=== PATIENT | male | born 1940 | race Two or more races ===

== ENCOUNTER 2018-06-02 11:25 | Emergency (ER) | payer OTHER ==
[~2018-06-02] VITALS: Ht 190.5 cm; Wt 1134.0 kg
[~2018-06-02 11:25] MED LIST: HYZAAR 100-121 UDTAB PO; NORVASC5 MG PO
[2018-06-02] MEDS ORDERED: ELIQUIS5 MG (12:34)
[2018-06-02] MEDS ORDERED: ZOLOFT25 MG (12:35)
[2018-06-02] MEDS ORDERED: SYNTHROID50 MCG (12:35)
[2018-06-02] MEDS ORDERED: FLECAINIDE ACET50 MG (12:35)
[2018-06-02] MEDS ORDERED: TOPROL XL25 MG (12:35)
== END 2018-06-02 14:24 | disposition home or self-care (01) ==
LOC: ER 11:25
DX: K05.10 Chronic gingivitis, plaque induced (principal); K08.89 Other specified disorders of teeth and supporting structures

== ENCOUNTER → 2018-09-07 | Emergency (ER) | payer OTHER ==
[~2018-09-07] VITALS: Ht 175.3 cm; Wt 102.1 kg
[~2018-09-07] MED LIST changes: +DUI500 PO; +ELIQUIS5 MG; +FLECAINIDE ACET50 MG; +MILLIPRED5 MG; +SYNTHROID50 MCG; +TOPROL XL25 MG; +ZOLOFT25 MG
== END | disposition home or self-care (01) ==
LOC: ER 18:44
DX: L03.113 Cellulitis of right upper limb (principal)

== ENCOUNTER 2018-10-19 11:21 | Emergency (ER) | payer OTHER ==
[~2018-10-19] VITALS: Ht 182.9 cm; Wt 115.2 kg
[2018-10-19] MEDS ORDERED: FLECAINIDE ACET50 MG (12:18)
[2018-10-19] MEDS ORDERED: HYDROCHLOROTH12.5 M1 (12:19)
[2018-10-19] MEDS ORDERED: FUROSEMIDE20 MG (12:19)
[2018-10-19] MEDS ORDERED: ZOFRAN4 MG PO ×2 (12:59→13:02)
[2018-10-19] MEDS ORDERED: ZANTAC150 MG PO ×2 (13:00→13:02)
[2018-10-19] MEDS ORDERED: DUI500 PO (13:02)
== END 2018-10-19 13:26 | disposition home or self-care (01) ==
LOC: ER 11:21
DX: L03.116 Cellulitis of left lower limb (principal)

== ENCOUNTER 2018-12-02 11:17 | Emergency (ER) | payer OTHER ==
[~2018-12-02] VITALS: Ht 180.3 cm; Wt 114.3 kg
[~2018-12-02 11:17] MED LIST changes: +FUROSEMIDE20 MG; +HYDROCHLOROTH12.5 M1; +ZANTAC150 MG PO; +ZOFRAN4 MG PO
== END 2018-12-02 19:20 | disposition home or self-care (01) ==
LOC: ER 11:17
DX: K59.09 Other constipation (principal)

== ENCOUNTER 2023-08-24 15:22 | Inpatient (IN) | payer OTHER ==
[~2023-08-24] VITALS: Ht 182.9 cm; Wt 114.8 kg
[~2023-08-24 15:22] MED LIST changes: +FINASTERIDE5 MG; +TAMS0.4C PO
[2023-08-24] MEDS ORDERED: LOSARTAN POTAS100 MG PO (16:41)
[2023-08-24] MEDS ORDERED: FLECAINIDE ACET50 MG PO (16:41)
[2023-08-24] MEDS ORDERED: ATORVASTATIN CA20 MG PO (16:42)
[2023-08-24] MEDS ORDERED: DOXAZOSIN MESYLA4 MG PO (16:42)
[2023-08-24] MEDS ORDERED: CHILDREN'S ASPI81 MG PO (16:43)
--- NOTE | 2023-08-24 17:22 | NUR ---
SE RECIBE PACIENTE ALERTA Y ORIENTADO X3. EL MISMO REFIERE ESTA MANANA COMENZAR CON PALPITACIONES Y CONTINUAR CON LAS MISMAS. PACIENTE NO PRESENTA DOLOR DE PECHO. SE OBSERVAN RESPIRACIONES ABDOMINALES. SE MIDEN S/V Y SE REALIZA EKG. SE UBICA A PACIENTE Y SE CONECTA A MONITOR CARDIACO.
[2023-08-24] MEDS ORDERED: DILTIAZEM HCL 25 MG/5 ML VIAL IV ONE (18:30)
--- NOTE | 2023-08-24 18:38 | NUR ---
PTE ALERTA Y ORIENTADO X3 SE LE ORIENTA SOBRE TX MEDICO LO CUAL REFIERE ENTENDER Y ACEPTAR. SE LE REALIZAN MUESTRAS DE LAB BAJO MEDIDAS ASEPTICAS. SE LE ADMINISTRA MEDICAMENTO FRANCINE ORDEN MEDICA Y SE NOTIFICA ESTUDIO PENDIENTE.
[2023-08-24 18:39] LABS: HEMATOCRIT 42.7 % (39.0-48.0); HEMOGLOBIN 14.8 g/dL (13-16.00); MEAN CELL VOLUME 90.9 fL (80.0-100.00); MEAN CORPUSCULAR HEMOGLOBIN 31.4 pg (27.00-32.0); MEAN CORPUSCULAR HGB CONC 34.6 g/dl (32.0-36.0); PLATELET COUNT 144 K/uL (150-450); RED BLOOD COUNT 4.69 M/uL (4.00-6.00); RED CELL DISTRIBUTION WIDTH 13.9 % (11.5-14.5)
[2023-08-24 18:41] LABS: ABG PH 7.427 (7.35-7.45); ABG PO2 90.4 mmHg (80-100); ABG pCO2 40.7 mmHg (35-45); BASE EXCESS 1.7 mmol/l; BICARBONATE 26.2 mmol/l (23-25); SaO2 97.2 %; Tco2 27.5 mmol/l; o2 21 %
[2023-08-24 18:42] LABS: allen test SATISFACTORY; puncture site RADIAL RIGHT
[2023-08-24 19:00] LABS: ALBUMIN 3.6 gm/dL (3.4-5.0); BILIRUBIN TOTAL 1.12 mg/dL (0.3-1.2); CALCIUM 8.5 mg/dL (8.5-10.1); CREATININE SERUM 0.86 mg/dL (0.70-1.30); GFR 85.14; GLOBULINA 3.2 G/DL (2.4-3.5); POTASSIUM 3.25 mEq/L (3.5-5.1); TOTAL PROTEIN 6.8 gm/dL (6.4-8.2)
[2023-08-24 19:04] LABS: INR 1.08; PARTIAL THROMBOPLASTIN TIME 31.8 SECONDS (22.0-34.0); PROTHROMBIN TIME 11.3 SECONDS (9.0-11.5)
[2023-08-24 20:18] LABS: PH,URINE 6.5 (5.0-8.0); URINE APPEARANCE Clear; URINE BILIRRUBIN Negative (NEGATIVE); URINE BLOOD Negative; URINE COLOR Yellow; URINE GLUCOSE Negative (NEGATIVE); URINE LEUKOCYTE Negative; URINE NITRATE Negative; URINE PROTEIN Negative (NEGATIVE)
[2023-08-24 20:22] LABS: URINE EPITHELIAL CELLS 3.3 uL (0.0-38.8)
[2023-08-24 20:44] LABS: URINE BACTERIA 2.5 uL (0.0-1933)
[2023-08-24] MEDS ORDERED: APIXABAN 5 MG TABLET PO SCH (21:44)
[2023-08-24] MEDS ORDERED: ACETAMINOPHEN 500 MG GEL..CAP PO PRN (21:45)
[2023-08-24] MEDS ORDERED: DILTIAZEM HCL 125 MG in 0.9 % SODIUM CHLORIDE 100 ML IV SCH (21:45)
[2023-08-25] MEDS ORDERED: ATORVASTATIN CALCIUM 20 MG TABLET PO SCH (09:00)
[2023-08-25] MEDS ORDERED: METOPROLOL SUCCINATE 25 MG TAB.SR.24H PO SCH (09:00)
[2023-08-25] MEDS ORDERED: FAMOTIDINE/PF 20 MG in 0.9 % SODIUM CHLORIDE 8 ML IV PUSH SCH ×2 (09:00→21:00)
[2023-08-25] MEDS ORDERED: FINASTERIDE 5 MG TABLET PO SCH (09:00)
[2023-08-25] MEDS ORDERED: HYDROCHLOROTHIAZIDE 25 MG TABLET PO SCH (11:00)
[2023-08-25] MEDS ORDERED: FF) FLECAINIDE ACETATE 50MG TAB PO SCH (11:01)
[2023-08-25] MEDS ORDERED: DOXAZOSIN MESYLATE 4 MG TABLET PO SCH (12:00)
[2023-08-25] MEDS ORDERED: LOSARTAN POTASSIUM 100 MG TABLET PO SCH (12:00)
[2023-08-25] MEDS ORDERED: POLYETHYLENE GLYCOL 3350 17 GM BLIST.PACK PO SCH (21:00)
[2023-08-25] MEDS ORDERED: FAMOtidine 20 MG TABLET PO SCH (21:00)
[2023-08-26] MEDS ORDERED: LOSARTAN POTAS100 MG PO (14:11)
[2023-08-26] MEDS ORDERED: FINASTERIDE5 MG PO (14:11)
[2023-08-26] MEDS ORDERED: HYDROCHLOROTHIA25 MG PO (14:11)
[2023-08-26] MEDS ORDERED: ATORVASTATIN CA20 MG PO (14:11)
[2023-08-26] MEDS ORDERED: POLY119PG PO (14:11)
[2023-08-26] MEDS ORDERED: FAMOTIDINE20 MG PO (14:11)
[2023-08-26] MEDS ORDERED: ELIQUIS5 MG PO (14:11)
[2023-08-26] MEDS ORDERED: TOPROL XL25 MG PO (14:11)
[2023-08-26] MEDS ORDERED: DOXAZOSIN MESYLA4 MG PO (14:11)
[2023-08-26] MEDS ORDERED: FLECAINIDE ACET50 MG PO (14:11)
== END 2023-08-26 14:58 | disposition home or self-care (01) | DRG 282 ==
LOC: ER 15:22 → ICU 21:46 → ICU-2 21:46 → ICU 08-25 03:39 → SURG 08-25 17:52
PROVIDERS: Nurse Practitioner Family; ADMIT Internal Medicine; ATTEND Internal Medicine
PROC: B246ZZZ Ultrasonography of Right and Left Heart (ICD-10-PCS; principal; 2023-08-24)
PROC: 4A12X4Z Monitoring of Cardiac Electrical Activity, External Approach (ICD-10-PCS; 2023-08-24)
DX: I48.20 Chronic atrial fibrillation, unspecified (principal); I21.4 Non-ST elevation (NSTEMI) myocardial infarction; I11.9 Hypertensive heart disease without heart failure; Z74.01 Bed confinement status; Z79.01 Long term (current) use of anticoagulants

== ENCOUNTER 2023-09-04 10:18 | Emergency (ER) | payer OTHER ==
[~2023-09-04] VITALS: Ht 182.9 cm; Wt 113.4 kg
[~2023-09-04 10:18] MED LIST changes: +ATORVASTATIN CA20 MG PO; +CHILDREN'S ASPI81 MG PO; +DOXAZOSIN MESYLA4 MG PO; +ELIQUIS5 MG PO; +FAMOTIDINE20 MG PO; +FINASTERIDE5 MG PO; +FLECAINIDE ACET50 MG PO; +HYDROCHLOROTHIA25 MG PO; +LOSARTAN POTAS100 MG PO; +POLY119PG PO; +TOPROL XL25 MG PO
[2023-09-04] MEDS ORDERED: ELIQUIS2.5 MG PO (10:31)
[2023-09-04] MEDS ORDERED: FLECAINIDE ACET50 MG PO (10:31)
[2023-09-04] MEDS ORDERED: LIPITOR20 MG PO (10:32)
[2023-09-04] MEDS ORDERED: COZAAR100 MG PO (10:32)
[2023-09-04] MEDS ORDERED: KAPSPARGO SPRIN25 MG PO (10:32)
[2023-09-04] MEDS ORDERED: PROSCAR5 MG PO (10:33)
[2023-09-04] MEDS ORDERED: HYDROCHLOROTHIA25 MG PO (10:33)
[2023-09-04] MEDS ORDERED: CARDURA XL4 MG PO (10:33)
[2023-09-04] MEDS ORDERED: FUROsemide 40 MG/4 ML VIAL IV ONE (11:00)
[2023-09-04] MEDS ORDERED: FUROsemide 40 MG/4 ML VIAL ONE (11:34)
[2023-09-04 11:57] LABS: ABG PH 7.417 (7.35-7.45); ABG PO2 80.2 mmHg (80-100); ABG pCO2 44.7 mmHg (35-45)
[2023-09-04 11:58] LABS: BICARBONATE 28.2 mmol/l (23-25); Tco2 29.5 mmol/l; allen test SATISFACTORY; o2 21 %; puncture site RADIAL RIGHT
[2023-09-04 12:20] LABS: HEMATOCRIT 36.7 % (39.0-48.0); HEMOGLOBIN 12.7 g/dL (13-16.00); MEAN CELL VOLUME 90.2 fL (80.0-100.00); MEAN CORPUSCULAR HEMOGLOBIN 31.2 pg (27.00-32.0); MEAN CORPUSCULAR HGB CONC 34.6 g/dl (32.0-36.0); RED BLOOD COUNT 4.07 M/uL (4.00-6.00); RED CELL DISTRIBUTION WIDTH 13.7 % (11.5-14.5)
[2023-09-04 12:22] LABS: PLATELET COUNT 117 K/uL (150-450)
[2023-09-04 12:36] LABS: PH,URINE 6.5 (5.0-8.0); URINE APPEARANCE Clear; URINE BILIRRUBIN Negative (NEGATIVE); URINE BLOOD Negative; URINE COLOR Yellow; URINE GLUCOSE Negative (NEGATIVE); URINE LEUKOCYTE Negative; URINE NITRATE Negative; URINE PROTEIN Negative (NEGATIVE)
[2023-09-04 12:40] LABS: URINE EPITHELIAL CELLS 2.3 uL (0.0-38.8); URINE WBC 2.4 uL (0.0-23.2)
[2023-09-04 12:42] LABS: URINE RBC 0.4 uL (0.0-20.8)
[2023-09-04 12:57] LABS: ALBUMIN 3.5 gm/dL (3.4-5.0); BILIRUBIN TOTAL 0.71 mg/dL (0.3-1.2); CALCIUM 8.3 mg/dL (8.5-10.1); CREATININE SERUM 0.77 mg/dL (0.70-1.30); GFR 96.72; GLOBULINA 2.8 G/DL (2.4-3.5); POTASSIUM 3.45 mEq/L (3.5-5.1); TOTAL PROTEIN 6.3 gm/dL (6.4-8.2)
[2023-09-04 13:04] LABS: INR 1.09; PARTIAL THROMBOPLASTIN TIME 29.1 SECONDS (22.0-34.0); PROTHROMBIN TIME 10.9 SECONDS (9.0-11.5)
== END 2023-09-04 15:32 | disposition home or self-care (01) ==
LOC: ER 10:19
PROVIDERS: General Practice
DX: B34.9 Viral infection, unspecified (principal); R53.1 Weakness; Z20.822 Contact with and (suspected) exposure to COVID-19; I10 Essential (primary) hypertension; N40.0 Benign prostatic hyperplasia without lower urinary tract symptoms

== ENCOUNTER 2024-11-19 11:16 | Emergency (ER) | payer OTHER ==
[~2024-11-19] VITALS: Ht 182.9 cm; Wt 114.8 kg
[~2024-11-19 11:16] MED LIST changes: +CARDURA XL4 MG PO; +COZAAR100 MG PO; +ELIQUIS2.5 MG PO; +KAPSPARGO SPRIN25 MG PO; +LIPITOR20 MG PO; +PROSCAR5 MG PO
[2024-11-19] MEDS ORDERED: LEVOFLOXACIN750 MG PO (11:41)
[2024-11-19] MEDS ORDERED: TRAM1TAB98 PO (11:41)
[2024-11-19] MEDS ORDERED: PROTONIX40 M1 PO (11:41)
[2024-11-19] MEDS ORDERED: 0.9 % SODIUM CHLORIDE 1,000 ML IV STA (12:39)
[2024-11-19] MEDS ORDERED: MORPHINE SULFATE 4 MG/ML CARTRIDGE IV ONE (12:45)
[2024-11-19] MEDS ORDERED: CEFTRIAXONE SODIUM 1,000 MG VIAL IV ONE (12:45)
[2024-11-19] MEDS ORDERED: TAMSULOSIN HCL 0.4 MG CAP PO ONE (12:45)
[2024-11-19 13:03] LABS: BASO % 0.4 % (0.1-1.2); EOS # 0.20 (0.04-0.54); EOS % 4.3 % (0.7-7.0); LYMPH # 0.91 (1.18-3.74); LYMPH % 19.5 % (19.3-53.1); MEAN PLATELET VOLUME 11.40 fl (9.4-12.4); MONO # 0.55 (0.24-0.82); MONO % 11.8 % (4.7-12.5); NEUT # 2.98 (1.56-6.13); NEUT % 64.0 % (34.0-71.1); RED CELL DISTRIBUTION WIDTH 13.2 % (11.6-14.4)
[2024-11-19 13:24] LABS: INR 1.19
[2024-11-19 13:56] LABS: BUN CREA RATIO 28.0 (7.0-25.0); CREATININE SERUM 1.15 mg/dL (0.70-1.30); GFR 60.73; GLUCOSE FASTING 77.0 mg/dL (65-100); OSMOLALITY SERUM 296.0 MOSM/KG (275-295)
[2024-11-19 16:22] LABS: URINE APPEARANCE Clear; URINE BILIRRUBIN Negative (NEGATIVE); URINE BLOOD Negative; URINE COLOR Yellow; URINE GLUCOSE Negative (NEGATIVE); URINE KETONE Negative (NEGATIVE); URINE LEUKOCYTE Negative; URINE NITRATE Negative; URINE PROTEIN Negative (NEGATIVE); URINE UROBILINOGEN 0.2 E.U./dl
[2024-11-19 16:26] LABS: URINE BACTERIA 4.7 uL (0.0-1933); URINE EPITHELIAL CELLS 11.0 uL (0.0-38.8)
[2024-11-19 16:34] LABS: URINE CAST 0.14 uL (0.0-1.40); URINE RBC 0.8 uL (0.0-20.8); URINE WBC 1.6 uL (0.0-23.2)
== END 2024-11-19 20:22 | disposition home or self-care (01) ==
LOC: ER 11:16
PROVIDERS: General Practice
DX: R39.11 Hesitancy of micturition (principal); N39.0 Urinary tract infection, site not specified; I10 Essential (primary) hypertension